=== PATIENT | female | born 1970 | race Caucasian/White ===

== ENCOUNTER 2018-12-31 08:21 | Outpatient (CLI) | payer OTHER | END 2018-12-31 08:22 | disposition home or self-care (01) | LOC: SONOGRAMA 08:21 | DX: R59.9 Enlarged lymph nodes, unspecified (principal) ==

== ENCOUNTER 2023-08-14 08:24 | Outpatient (CLI) | payer OTHER | END 2023-08-14 08:34 | disposition home or self-care (01) | LOC: RX STUDY 08:24 | PROVIDERS: ATTEND Internal Medicine Gastroenterology | DX: R13.12 Dysphagia, oropharyngeal phase (principal) ==